=== PATIENT | female | born 1995 | race African-American/Black ===

== ENCOUNTER 2018-01-21 19:00 | Emergency (ER) | payer MEDICAID, OTHER ==
[2018-01-21 20:26] LABS: ABSOLUTE EOSINOPHILS # (AUTO) 0.3 10^3/uL (0.0-0.6); ABSOLUTE MONOCYTES (AUTO) 0.5 10^3/uL (0.1-1.4); BASOPHILS % (AUTO) 0.4 % (0-2); EOSINOPHILS % (AUTO) 3.8 % (0-6); HEMATOCRIT 37.8 % (36.0-47.0); HEMOGLOBIN 12.5 g/dL (12.0-15.5); LYMPHOCYTES % (AUTO) 33.9 % (13-45); MEAN CORPUSCULAR HEMOGLOBIN 26.5 pg (27.0-33.4); MEAN CORPUSCULAR VOLUME 80 fl (80-97); MONOCYTES % (AUTO) 5.2 % (3-13); PLATELET COUNT 368 10^3/uL (150-450); RED BLOOD COUNT 4.71 10^6/uL (3.72-5.28); RED CELL DISTRIBUTION WIDTH 13.9 % (11.5-14.0); SEGMENTED NEUTROPHILS % (AUTO) 56.7 % (42-78); TOTAL CELLS COUNTED % (AUTO) 100 %; WHITE BLOOD COUNT 8.9 10^3/uL (4.0-10.5)
[2018-01-21 20:44] LABS: ALANINE AMINOTRANSFERASE 25 U/L (9-52); ALBUMIN 4.2 g/dL (3.5-5.0); ALKALINE PHOSPHATASE 52 U/L (38-126); ANION GAP 8 (5-19); ASPARTATE AMINO TRANSFERASE 19 U/L (14-36); BILIRUBIN,DIRECT 0.2 mg/dL (0.0-0.4); BILIRUBIN,TOTAL 0.2 mg/dL (0.2-1.3); BLOOD UREA NITROGEN 9 mg/dL (7-20); CALCIUM 10.1 mg/dL (8.4-10.2); CARBON DIOXIDE 27 mmol/L (22-30); CHLORIDE 104 mmol/L (98-107); GLUCOSE 79 mg/dL (75-110); POTASSIUM 3.7 mmol/L (3.6-5.0); SODIUM 139.2 mmol/L (137-145); TOTAL PROTEIN 7.3 g/dL (6.3-8.2)
[2018-01-21 21:08] LABS: APPEARANCE,URINE SLIGHTLY-CLOUDY; BILIRUBIN,URINE NEGATIVE (NEGATIVE); COLOR,URINE YELLOW; GLUCOSE, URINE NEGATIVE (NEGATIVE); KETONES,URINE NEGATIVE (NEGATIVE); LEUKOCYTE ESTERASE,URINE NEGATIVE (NEGATIVE); NITRITE,URINE NEGATIVE (NEGATIVE); PROTEIN,URINE NEGATIVE (NEGATIVE); URINE SPECIFIC GRAVITY 1.018
--- NOTE | 2018-01-21 21:52 | ER Document Report ---
ED General - General Chief Complaint: Abdominal Cramping Stated Complaint: ABDOMINAL PAIN Time Seen by Provider: 01/21/18 20:32 Notes: 22-year-old female. To the emergency department complaining of lower pelvic pain. Patient thinks she is . Denies any fever, chills, sweats. Denies any vaginal bleeding. Has had 4 pregnancies and 2 miscarriages. Has 2 live children. States that she was homeless up in [place]. Made a mistake and got . Not really sure she wants to have the child but wants to be checked out today because she was having some cramping. - HPI Onset: Last week Onset/Duration: Gradual - Related Data Allergies/Adverse Reactions: nitrofurantoin [From Macrobid] Allergy (Verified 01/21/18 19:01) Past Medical History - General Information source: Patient - Social History Smoking Status: Former Smoker Chew tobacco use (# tins/day): No Frequency of alcohol use: None Drug Abuse: None Lives with: Alone Family History: Reviewed & Not Pertinent Patient has suicidal ideation: No Patient has homicidal ideation: No Renal/ Medical History: Denies: Hx Peritoneal Dialysis Review of Systems - Review of Systems Constitutional: No symptoms reported EENT: No symptoms reported Cardiovascular: No symptoms reported Respiratory: No symptoms reported Gastrointestinal: Abdominal pain. denies: Diarrhea, Nausea, Vomiting Genitourinary: No symptoms reported Female Genitourinary: Last menstrual period - 11/16/17, . denies: Heavy/ abnormal periods, Irregular period, Vaginal discharge, Vaginal bleeding Musculoskeletal: No symptoms reported Skin: No symptoms reported Hematologic/Lymphatic: No symptoms reported Neurological/Psychological: No symptoms reported Physical Exam - Vital signs Vitals: Temp Pulse Resp BP Pulse Ox 98.3 F 77 18 133/75 H 99 01/21/18 19:03 01/21/18 19:03 01/21/18 19:03 01/21/18 19:03 01/21/18 19:03 Interpretation: Normal - General General appearance: Appears well, Alert - HEENT Head: Normocephalic, Atraumatic Eyes: Normal Pupils: PERRL - Respiratory Respiratory status: No respiratory distress Chest status: Nontender Breath sounds: Normal Chest palpation: Normal - Cardiovascular Rhythm: Regular Heart sounds: Normal auscultation Murmur: No - Abdominal Inspection: Normal Distension: No distension Bowel sounds: Normal Tenderness: Nontender Organomegaly: No organomegaly - Back Back: Normal, Nontender - Extremities General upper extremity: Normal inspection, Nontender, Normal color, Normal ROM , Normal temperature General lower extremity: Normal inspection, Nontender, Normal color, Normal ROM , Normal temperature, Normal weight bearing. No: Alia's sign - Neurological Neuro grossly intact: Yes Cognition: Normal Orientation: AAOx4 Michael Coma Scale Eye Opening: Spontaneous Michael Coma Scale Verbal: Oriented Wins[place] Coma Scale Motor: Obeys Commands Winslow Coma Scale Total: 15 Speech: Normal Motor strength normal: LUE, RUE, LLE, RLE Sensory: Normal - Psychological Associated symptoms: Normal affect, Normal mood - Skin Skin Temperature: Warm Skin Moisture: Dry Skin Color: Normal Course - Re-evaluation Re-evalutation: 01/21/18 21:47 This is a 22-year-old female G5 para A2. With cramping. No fever. No vaginal discharge. Patient states that she is not extremely excited but she thinks that she is . Has not had any OB care. Has only been in town for 2 days. Thinking about staying in the area but not really sure. Here from [place]. Denies any other symptoms at this time other than crampy pelvic pain 01/21/18 21:48 Labs are unremarkable with exception of elevated hCG. A bedside ultrasound was performed. Bedside transabdominal ultrasound reveals a 8 week fetus with heart tones 140. No adnexal fluid. Did not feel necessarily compelled at this time to do any formal study. We will give her follow-up information for [facility]. - Vital Signs Vital signs: Temp Pulse Resp BP Pulse Ox 98.3 F 77 18 133/75 H 99 01/21/18 19:03 01/21/18 19:03 01/21/18 19:03 01/21/18 19:03 01/21/18 19:03 - Laboratory Result Diagrams: 01/21/18 20:13 01/21/18 20:13 Laboratory results interpreted by me: 01/21/18 01/21/18 01/21/18 20:13 20:13 20:53 MCH 26.5 L Beta HCG, Quant [id number] H Urine Urobilinogen 4.0 H Discharge - Discharge Clinical Impression: Pelvic pain in antepartum period in first trimester Condition: Good Instructions: Pelvic Pain in and Round Ligament Pain ([facility]) Additional Instructions: Return immediately if you develop any vaginal bleeding, worsening abdominal pain , fever or other concerns. Follow-up information for [facility] has been provided. The ultrasound done at bedside today shows that you have a intrauterine . Do not take any anti-inflammatory medications. You may take Tylenol as instructed for pain. Referrals: ELIJAH ZUNIGA MD [ACTIVE STAFF] - Follow up in 3-5 days
[2018-01-21 22:31] VITALS: BP 122/77
== END 2018-01-21 22:31 | disposition home or self-care (01) ==
LOC: ER 19:00
DX: O26.891 Other specified pregnancy related conditions, first trimester (principal); R10.2 Pelvic and perineal pain; Z3A.09 9 weeks gestation of pregnancy; Z87.59 Personal history of other complications of pregnancy, childbirth and the puerperium; Z88.1 Allergy status to other antibiotic agents; Z87.891 Personal history of nicotine dependence
CPT/HCPCS: 36415; 80053; 81001; 83690; 84702; 85025; 99284